=== PATIENT | female | born 1965 | race Caucasian/White ===

== ENCOUNTER 2017-05-10 09:00 | Day surgery (SDC) | payer MEDICAID ==
--- NOTE | 2017-05-10 10:03 | CP.SDSHP ---
Same Day Surgery H & P - History Proposed Procedure: US guided FNA of right thyroid nodule Pre-Op Diagnosis: right thyroid nodule - Physical Exam Mental Status: Alert & Oriented x3 - Impression Impression: Pt with a large right thyroid nodule. Plan US guided FNA Pt. Evaluated Today:Candidate for Anesthesia & Procedure: No - Date & Time Date: 05/10/17 Time: 09:30 Short Stay Discharge - Short Stay Discharge Admitting Diagnosis/Reason for Visit: E04.1-THYROID NODULE Disposition: HOME/ ROUTINE
--- NOTE | 2017-05-10 10:04 | PCM.SURG1 ---
Surgeon's Initial Post Op Note - Surgeon's Notes Surgeon: Reymundo ANDRES md Tug Hand: none Type of Anesthesia: Local Pre-Operative Diagnosis: Right thyroid nodule Operative Findings: US shows a large solid right thyroid nodule Post-Operative Diagnosis: Right thyroid nodule Operation Performed: US guided FNA Specimen/Specimens Removed: 5 passes with a 25 g needle Estimated Blood Loss: EBL {In ML}: 1 Blood Products Given: N/A Drains Used: No Drains Post-Op Condition: Good Date of Surgery/Procedure: 05/10/17 Time of Surgery/Procedure: 10:00
--- NOTE | 2017-05-10 12:55 | US ---
PROCEDURE: Date of Procedure: 05/10/2017 PROCEDURE: 1. Ultrasound guided FNA of right thyroid nodule, CPT 22813 2. Ultrasound guidance for FNA, 27725 Medications: 3cc 1% Lidocaine HISTORY: Enlarged right thyroid nodule. TECHNIQUE: Following informed consent and procedure time-out, a limited ultrasound patient's neck confirmed the presence of a 2.2cm complex right thyroid nodule which is predominantly solid. After the patient's neck was prepped and draped in the usual sterile fashion, the skin was anesthetized with 1% lidocaine. Ultrasound-guided fine needle aspiration was then performed of the dominant right thyroid nodule. A total of 5 passes were made into the nodule with 25 gauge needle under ultrasound guidance. The FNA specimen was sent for routine pathology. Post biopsy ultrasound showed no hematoma. IMPRESSION: Ultrasound-guided FNA of the dominant right thyroid nodule.
== END 2017-05-10 10:30 | disposition home or self-care (01) ==
LOC: C.SPRAD 09:00
PROVIDERS: ATTEND Radiology Vascular & Interventional Radiology
DX: E04.1 Nontoxic single thyroid nodule (principal); E04.2 Nontoxic multinodular goiter